=== PATIENT | male | born 1985 | race Caucasian/White ===

== ENCOUNTER 2017-11-04 15:41 | Emergency (ER) | payer OTHER ==
[~2017-11-04] VITALS: Ht 175.3 cm; Wt 95.2 kg
[~2017-11-04 15:41] MED LIST: BENTYL20 MG PO; CARAFATE1 GM PO; CELEXA20 MG PO; CLINDAMYCIN HC300 MG PO; DAYPRO600 MG PO; DULOXETINE HCL20 MG PO; GABAPENTIN100 MG PO; GABAPENTIN300 MG PO; IBUPROFEN800 MG PO; LORTAB 7.5-3251 EACH PO; NAPROXEN500 MG PO; NEURONTIN300 MG PO; NORCO 5-325 TA1 EACH PO; NORCO 7.5-3251 EACH PO; OMEPRAZOLE20 MG PO; PEPCID20 MG PO; PERCOCET 10-321 EACH PO; PERCOCET 5-3251 EACH PO; PREDNISONE20 MG PO; PRILOSEC20 MG PO; PROCHLORPERAZIN10 MG PO; PROTONIX40 MG PO; TRAMADOL HCL50 MG PO; WELLBUTRIN SR100 MG PO; XANAX1 MG PO; ZOFRAN ODT4 MG PO
== END 2017-11-04 16:10 | disposition home or self-care (01) ==
LOC: ED 15:41
DX: L08.9 Local infection of the skin and subcutaneous tissue, unspecified (principal)

== ENCOUNTER 2019-11-03 12:09 | Emergency (ER) | payer OTHER ==
[~2019-11-03] VITALS: Ht 175.3 cm; Wt 95.2 kg
--- OUTSIDE RECORDS SUMMARY | ~2019-11-03 | XMS | Clinical Summary ---
Demographics + + + | Address | [address] | | | [place] [address] | + + + | Home Phone | | + + + | Preferred Language | Unknown | + + + | Marital Status | | + + + | Latter-Day Affiliation | Unknown | + + + | Race | Unknown | + + + | Ethnic Group | Unknown | + + + Author + + + | Author | [facility] | | | and [place] | + + + | Organization | [facility] | | | and [place] | + + + | Address | Unknown | + + + | Phone | Unavailable | + + + Support + + +---------+ + | Name | Relationship | Address | Phone | + + +---------+ + | Maranda Multani | ECON | Unknown | | + + +---------+ + Care Team Providers + +------+ + | Care Business Support Manager Name | Role | Phone | + +------+ + | Pcp, Prov Inactive | PCP | | + +------+ + Allergies + + + + + + | Active Allergy | Reactions | Severity | Noted | Comments | | | | | Date | | + + + + + + | Vancomycin | Rash | Low | 09/28/19 | | | | | | 18 | | + + + + + + Medications No known medications Active Problems + + + | Problem | Noted Date | + + + | CELLULITIS AND ABSCESS OF UPPER ARM AND FOREARM | 07/27/2011 | + + + | BIPOLAR II DISORDER | 07/13/2011 | + + + | LOW BACK PAIN, CHRONIC | | + + + | KNEE PAIN | | + + + Immunizations + + + + | Name | Administration Dates | Next Due | + + + + | TDAP, (ADOL/ADULT) | 09/27/2017 | | + + + + Social History + +-------+ +--------+------+ | Tobacco Use | Types | Packs/Day | Years | Date | | | | | Used | | + +-------+ +--------+------+ | Current Every Day | | | | | | Smoker | | | | | + +-------+ +--------+------+ + +---+---+---+ | Smokeless Tobacco: | | | | | Never Used | | | | + +---+---+---+ + + + | Sex Assigned at | Date Recorded | | | | + + + | Not on file | | + + + Last Filed Vital Signs + + + + + | Vital Sign | Reading | Time Taken | Comments | + + + + + | Blood Pressure | 141/91 | 09/27/2017 11:14 AM | | | | | PDT | | + + + + + | Pulse | 81 | 09/27/2017 11:14 AM | | | | | PDT | | + + + + + | Temperature | 36.7 C (98 F) | 09/27/2017 11:14 AM | | | | | PDT | | + + + + + | Respiratory Rate | 18 | 09/27/2017 11:14 AM | | | | | PDT | | + + + + + | Oxygen Saturation | 96% | 09/27/2017 11:14 AM | | | | | PDT | | + + + + + | Inhaled Oxygen | - | - | | | Concentration | | | | + + + + + | Weight | 96 kg (211 lb 10.3 | 09/27/2017 11:14 AM | | | | oz) | PDT | | + + + + + | Height | 175.3 cm (5' 9") | 09/27/2017 11:14 AM | | | | | PDT | | + + + + + | Body Mass Index | 31.25 | 09/27/2017 11:14 AM | | | | | PDT | | + + + + + Plan of Treatment + + + + + | Health Maintenance | Due Date | Last | Comments | | | | Done | | + + + + + | Vaccine: Influenza | | | | | (#1) | 0 | | | + + + + + | Vaccine: | | 09/28/19 | | | Dtap/Tdap/Td (2 - | 8 | 18 | | | Td) | | | | + + + + + Results Not on filefrom Last 3 Months Additional Health Concerns + + + + + | Infection | Onset Date | Last Indicated | Resolved Time | + + + + + | Methicillin-resistan | 07/06/2013 | 07/06/2013 | | | t Staphylococcus | | | | | aureus | | | | + + + + + Insurance + +--------+ +--------+ +---------+--------+ | Payer | Benefi | Subscriber | Effect | Phone | Address | Type | | | t Plan | ID | elsy | | | | | | / | | Dates | | | | | | Group | | | | | | + +--------+ +--------+ +---------+--------+ | [employer] | [employer] | [id number] | | [phone] | | Medica | | MEDICAID HMO | HEALTH | | [id number] | 1 | | id | | | MDCD | | esent | | | | | | [place]MO [place] | | | | | | + +--------+ +--------+ +---------+--------+ + +--------+ +--------+ + + | Guarantor Name | Accoun | Relation to | Date | Phone | Billing Address | | | t Type | Patient | of | | | | | | | | | | + +--------+ +--------+ + + | Simeon Wynn | Person | Self [birth year] | [address] | | A | al/Fam | | 1986 | [phone] | [address] [place], | | | [place] | | | [address] (Home) | [place] [address] | + +--------+ +--------+ + + Advance Directives + + + + + | Type | Date Recorded | Patient | Explanation | | | | Health Information Director | | + + + + + | Power of | | | | | Hvac Refrigeration Technician | | | | + + + + + | Advance | | | | | Directive | | | | + + + + +
--- OUTSIDE RECORDS SUMMARY | ~2019-11-03 | XMS | Encounter Summary ---
Demographics + + + | Address | [address] | | | [place] [address] | + + + | Home Phone | | + + + | Preferred Language | Unknown | + + + | Marital Status | | + + + | Bahai Affiliation | Unknown | + + + | Race | Unknown | + + + | Ethnic Group | Unknown | + + + Author + + + | Author | [facility] | | | and [place] | + + + | Organization | [facility] | | | and [...] Team Providers + +------+ + | Care Laborer [employer]arch Factory Name | Role | Phone | + +------+ + | Pcp, Prov Inactive | PCP | | + +------+ + Encounter Details +--------+ + + + + | Date | Type | Department | Care Team | Description | +--------+ + + + + | 02/17/ | Orders Only | [facility] | Jonny Valadez | | | 2016 | | CONVERSION [address] | MD S[address] | | | | | [address] | [place] | | | | | [place] | [place] [address] | | | | | [address] | [phone] | | | | | [phone] | | | +--------+ + + + + Social History + +-------+ +--------+------+ | Tobacco Use | Types | Packs/Day | Years | Date | | | | | Used | | + +-------+ +--------+------+ | Never Assessed | | | | | + +-------+ +--------+------+ + + + | Sex Assigned at | Date Recorded | | | | + + + | Not on file | | + + + documented as of this encounter Plan of Treatment Not on filedocumented as of this encounter Procedures + +--------+ + + + | Procedure Name | Priori | Date/Time | Associated Diagnosis | Comments | | | ty | | | | + +--------+ + + + | ECHO INTERPRETATION | Routin | 02/18/2016 | | Results for this | | OF OUTSIDE FILMS | e | 12:45 PM | | procedure are in the | | | | PDT | | results section. | + +--------+ + + + documented in this encounter Results ECHO Interpretation of Outside Films (02/18/2016 12:45 PM PDT) + + | Specimen | + + | | + + + + + | Impressions | Performed At | + + + | 1. See Dictation. Sinus. 2. Cardiac chamber dimensions NML. LV | | | systolic and diastolic function NML, LVEF 60-65%. 3. Aortic, Mitral, | | | and Tricuspid valves NML, Pulmonic valve not seen well. No /AI. | | | Trace TR. 4. No Pericardial effusion, however, Pericardium | | | somewhat more reflectant, significant unknown. 5. IVC NML, est | | | systolic PAP 10-15mmHg. | | + + + + + + | Narrative | Performed At | + + + | Patient Name: Simeon Wynn Date of : 1985 | | | Performing Physician: Jh Gordon DO | | | | | | INDICATIONS bundle branch block CONCLUSIONS | | | 1. See Dictation. Sinus. 2. Cardiac chamber dimensions | | | NML. LV systolic and diastolic function NML, LVEF 60-65%. 3. Aortic, | | | Mitral, and Tricuspid valves NML, Pulmonic valve not seen well. No | | | /AI. Trace TR. 4. No Pericardial effusion, however, Pericardium | | | somewhat more reflectant, significant unknown. 5. IVC NML, est | | | systolic PAP 10-15mmHg. FINDINGS -------- ECG rhythm: Sinus | | | rhythm. Study: This was a technically adequate study. Left | | | Ventricle: Overall left ventricular systolic function is normal with, | | | an EF between 60 - 65 %. Left Ventricle: The left ventricle cavity | | | size is normal. Left Ventricle: Left ventricular wall thickness is | | | normal. Left Ventricle: The diastolic filling pattern is normal for | | | the age of the patient. Right Ventricle: The right ventricle is | | | normal in size. Right Ventricle: The right ventricular systolic | | | function is normal. Left Atrium: The left atrium is normal in size. | | | Right Atrium: The right atrium is normal in size. Aortic Valve: The | | | aortic valve is trileaflet, and appears anatomically normal. No aortic | | | stenosis or regurgitation. Mitral Valve: The mitral valve is normal. | | | Mitral Valve: No mitral regurgitation. Tricuspid Valve: The | | | tricuspid valve appears structurally normal. Tricuspid Valve: Trace | | | tricuspid regurgitation present. Pulmonic Valve: The pulmonic valve | | | was not well visualized. Pericardium: There is no pericardial | | | effusion. IVC/Hepatic Veins: The IVC is small (<1.5cm) and collapses | | | with sniff, consistent with central venous pressures of 0-5mmHg. | | | MEASUREMENTS Funeral Driver: MARTHA Authenticated by: | | | Jh Gordon DO Report Date/Time: -- 07_[id number]:42:32 | | + + + + + | Procedure Note | + + | Sean, Rad Conversion - 12/21/2018 10:34 PM PDT Patient Name: Tianna, | | VasiliosDate of : 1985 Performing Physician: Jh | | Heidi | | DO INDICATIONS b | | undle branch block CONCLUSIONS 1. See Dictation. Sinus. 2. Cardiac chamber | | dimensions NML. LV systolic and diastolic function NML, LVEF 60-65%. 3. Aortic, Mitral, | | and Tricuspid valves NML, Pulmonic valve not seen well. No /AI. Trace TR. 4. No | | Pericardial effusion, however, Pericardium somewhat more reflectant, significant | | unknown. 5. IVC NML, est systolic PAP 10-15mmHg. FINDINGS--------ECG rhythm: Sinus | | rhythm.Study: This was a technically adequate study.Left Ventricle: Overall left | | ventricular systolic function is normal with, an EF between 60 - 65 %.Left Ventricle: | | The left ventricle cavity size is normal.Left Ventricle: Left ventricular wall thickness | | is normal.Left Ventricle: The diastolic filling pattern is normal for the age of the | | patient.Right Ventricle: The right ventricle is normal in size.Right Ventricle: The | | right ventricular systolic function is normal.Left Atrium: The left atrium is normal in | | size.Right Atrium: The right atrium is normal in size.Aortic Valve: The aortic valve is | | trileaflet, and appears anatomically normal. No aortic stenosis or regurgitation.Mitral | | Valve: The mitral valve is normal.Mitral Valve: No mitral regurgitation.Tricuspid Valve: | | The tricuspid valve appears structurally normal.Tricuspid Valve: Trace tricuspid | | regurgitation present.Pulmonic Valve: The pulmonic valve was not well | | visualized.Pericardium: There is no pericardial effusion.IVC/Hepatic Veins: The IVC is | | small (<1.5cm) and collapses with sniff, consistent with central venous pressures of | | 0-5mmHg. MEASUREMENTS Funeral Driver: DBSAuthenticated by: Jh Gordon | | D[place]ep[place] Date/Time: -- [id number] IMPRESSION: 1. See Dictation. Sinus. 2. | | Cardiac chamber dimensions NML. LV systolic and diastolic function NML, LVEF 60-65%. 3. | | Aortic, Mitral, and Tricuspid valves NML, Pulmonic valve not seen well. No /AI. | | Trace TR. 4. No Pericardial effusion, however, Pericardium somewhat more reflectant, | | significant unknown. 5. IVC NML, est systolic PAP 10-15mmHg. | |Right Atrium: The right atrium is normal in size. | |Aortic Valve: The aortic valve is trileaflet, and appears anatomically normal. No aortic st enosis or regurgitation. | |Mitral Valve: The mitral valve is normal. | |Mitral Valve: No mitral regurgitation. | |Tricuspid Valve: The tricuspid valve appears structurally normal. | |Tricuspid Valve: Trace tricuspid regurgitation present. | |Pulmonic Valve: The pulmonic valve was not well visualized. | |Pericardium: There is no pericardial effusion. | |IVC/Hepatic Veins: The IVC is small (<1.5cm) and collapses with sniff, consistent with cent ral venous pressures of 0-5mmHg. | | | |MEASUREMENTS | | | | | |Funeral Driver: DBS | |Authenticated by: Jh Gordon DO | |Report Date/Time: -- [id number]:32 | | | |IMPRESSION: | |1. See Dictation. Sinus. 2. Cardiac chamber dimensions NML. LV systolic and diastolic fun ction NML, LVEF 60-65%. 3. Aortic, Mitral, and Tricuspid valves NML, Pulmonic valve not seen well. No /AI. Trace TR. 4. No Pericardial effusion, however, | |Pericardium somewhat more reflectant, significant unknown. 5. IVC NML, est systolic PAP 10- 15mmHg. | + + documented in this encounter Visit Diagnoses Not on filedocumented in this encounter Additional Health Concerns + + + + + | Infection | Onset Date | Last Indicated | Resolved Time | + + + + + | Methicillin-resistan | 07/06/2013 | 07/06/2013 | | | t Staphylococcus | | | | | aureus | | | | + + + + + documented as of this encounter"
--- OUTSIDE RECORDS SUMMARY | ~2019-11-03 | XMS | Encounter Summary ---
Demographics + + + | Address | [address] | | | [place] [address] | + + + | Home Phone | | + + + | Preferred Language | Unknown | + + + | Marital Status | | + + + | Anabaptist Affiliation | Unknown | + + + | Race | Unknown | + + + | Ethnic Group | Unknown | + + + Author + + + | Author | [facility] | | | and [place] | + + + | Organization | [facility] | | | and [...] Team Providers + +------+ + | Care Education Administrative Assistant Name | Role | Phone | + +------+ + | Omkar Ramey MD | PCP | | + +------+ + Encounter Details +--------+ + + + + | Date | Type | Department | Care Team | Description | +--------+ + + + + | [facility] | Pascual Rebolledo | | | 2011 | Encounter | MED [facility] OP | MD Miranda, FACS [address] | | | | | [address] | [address] | | | | | [place] | [place] [address] | | | | | [address] | [phone] | | | | | [phone] | | | +--------+ + + + [...] + + documented as of this encounter Medications at Time of Discharge + + + +---------+ + + | Medication | Sig | Dispensed | Refills | Start | End Date | | | | | | Date | | + + + +---------+ + + | citalopram | Take 20 mg by mouth | | 0 | 07/13/19 | | | (CELEXA) 20 mg | Daily. | | | 12 | 8 | | tablet | | | | | | + + + +---------+ + + | divalproex | Take 250 mg by mouth | | 0 | 07/13/19 | | | (DEPAKOTE) 250 mg EC | 2 times daily. | | | 12 | 8 | | tablet | | | | | | + + + +---------+ + + | | Take 7.5-325 mg by | | 0 | 07/13/19 | | | HYDROcodone-acetamin | mouth every 4 hours | | | 12 | 8 | | ophen (NORCO) | as needed. | | | | | | 7.5-325 mg per | | | | | | | tablet | | | | | | + + + +---------+ + + | traMADol (ULTRAM) | one or two twice | | 0 | 07/27/19 | | | 50 mg tablet | daily | | | 12 | 8 | + + + +---------+ + + documented as of this encounter Miscellaneous Notes Op Note - Pascual Rebolledo MD - 07/27/2011 11:48 AM PDTDATE: 07/27/2011 PREOPERATIVE DIAGNOSIS: Right arm abscess and cellulitis. POSTOPERATIVE DIAGNOSIS: RIGHT ARM ABSCESS AND CELLULITIS. PROCEDURE: Incision and drainage x2 right forearm. OPERATING SURGEON: Pascual Rebolledo MD. DURATION OF SURGERY: 20 minutes. INDICATIONS FOR PROCEDURE: This 26-year-old gentleman has had approximately 5-7 days of inc reasing ce llulitis of the right forearm. CT demonstrated area abscess. Ultrasound in [facility] confirmed this f inding. FINDINGS AT SURGERY: Two areas of abscess, one in the anterolateral proximal forearm approx imately 2 cm, one in the far lateral dorsum of the arm approximately 6 x 8 cm. Both of thes e were cultured sepa rately, appeared to be whitish yellow creamy pus. OPERATIVE PROCEDURE: This patient had been examined in the office the morning of surgery. U ltrasound had been done confirming areas of fluid collection. He was then taken to the oper ating room. Dr. Ernie chatterjee proceeded with a general laryngeal mask anesthesia. The right arm wa s prepped with ChloraPrep and d raped in a sterile manner. Pause was made to identify the p atient and procedure, perioperative medica tions and allergies. The patient had an approxim ately 2 cm pustule on the anterolateral proximal fore arm. This was incised. There was pus present. The area of necrotic subcutaneous fat was excised leavi ng a saucerized 2 cm wound . Subcutaneous bleeders were cauterized. The patient's fluctuant area on th e far lateral p roximal forearm was then incised over the area of maximal fluctuance. Pus came out of this. This was also cultured. Digital exploration of the abscess cavity was done and it was exten ded approximately 1 cm proximally and distally opening up the area of abscess completely. T here were no o ther areas of fluctuance. The arm was squeezed. No other pus was draining. Good hemostasis was obta ined in the larger incision and drainage. Local anesthesia 30 mL, 0.25% Marcaine with epinephrine was used to infiltrate around the area of incision. The la rger incision and drainage was packed open wit h Kerlix roll followed by an ABD and a secon d Kerlix roll. The patient was awoken, extubated, and david en to recovery in stable conditio n. ESTIMATED BLOOD LOSS: 18 mL. BLOOD REPLACED: None. SPECIMENS REMOVED: Cultures. DICTATED BY: Pascual Rebolledo MD Surgery JOB #: [id number] EXT JOB #:[id number] <Electronicall y Signed by Pascual Rebolledo MD> 07/27/11 1732 documented in this encounter Plan of Treatment Not on filedocumented as of this encounter Visit Diagnoses Not on filedocumented in this encounter"
--- OUTSIDE RECORDS SUMMARY | ~2019-11-03 | XMS | Encounter Summary ---
Demographics + + + | Address | [address] | | | [place] [address] | + + + | Home Phone | | + + + | Preferred Language | Unknown | + + + | Marital Status | | + + + | Scientology Affiliation | Unknown | + + + | Race | Unknown | + + + | Ethnic Group | Unknown | + + + Author + + + | Author | [facility] | | | and [place] | + + + | Organization | [facility] | | | and [...] Team Providers + +------+ + | Care Criminal Research Specialist Name | Role | Phone | + +------+ + PCP | Unavailable | + +------+ + Encounter Details +--------+ + + + + | Date | Type | Department | Care Team | Description | +--------+ + + + + | 07/09/ | [facility] | [facility] | Eunice Fermin MD | | | 2008 | Encounter | MED CTR XRAY [address] | [address] | | | | | [place] | [place] [address] | | | | | [place] [address] | [phone] | | | | | [phone] | | | +--------+ + + + [...]
--- OUTSIDE RECORDS SUMMARY | ~2019-11-03 | XMS | Encounter Summary ---
Demographics + + + | Address | [address] | | | [place] [address] | + + + | Home Phone | | + + + | Preferred Language | Unknown | + + + | Marital Status | | + + + | Confucianist Affiliation | Unknown | + + + | Race | Unknown | + + + | Ethnic Group | Unknown | + + + Author + + + | Author | [facility] | | | and [place] | + + + | Organization | [facility] | | | and [...] Team Providers + +------+ + | Care Television Equipment Operator Name | Role | Phone | + +------+ + | Pcp, Prov Inactive | PCP | | + +------+ + Reason for Visit + + + | Reason | Comments | + + + | Finger Laceration | PRO RM A- right finger LAC X today, last tetanus unknown | + + + Encounter Details +--------+---------+ + + + | Date | Type | Department | Care Team | Description | +--------+---------+ + + + | 09/27/ | Office | [facility] | Guero German, | Laceration of right | | 2018 | Visit | CARE [address] | MD [address] | index finger without | | | | [place] | foreign body | | | | [id number] | [id number] | without damage to | | | | [phone] | | camryn, initial | | | | | | encounter (Primary | | | | | | Dx) | +--------+---------+ + + + Social History + +-------+ [...] + + documented as of this encounter Last Filed Vital Signs + + + [...] | + + + + + documented in this encounter Patient Instructions Patient Instructions Guero German MD - 09/27/2017 11:00 AM PDT Diphtheria/Tetanus Toxoids; Pertussis Vaccine, DTP injection Brand Names: Adacel, Boostrix, Daptacel, Infanrix What is this medicine? DIPHTHERIA and TETANUS TOXOIDS; PERTUSSIS VACCINE (dif THEER ee uh and TET n us TOK soids; per TUS iss VAK seen) is used to prevent diphtheria, tetanus, and pertussis infections. How should I use this medicine? This vaccine is for injection into a muscle. It is given by a health care asst. A copy of Vaccine Information Statements will be given before each vaccination. Read this s heet carefully each time. The sheet may change frequently. Talk to your internal salesperson regarding the use of this vaccine in children. While the DTP vacc ine may be given to children ages 6 weeks to 7 years and the Tdap vaccine may be given to ch ildren at least 10 years old, precautions do apply. What side effects may I notice from receiving this medicine? Side effects that you should report to your doctor or health care asst as soon as p ossible: allergic reactions like skin rash, itching or hives, swelling of the face, lips, or tong ue breathing problems fever of 103 degrees F or more flu-like symptoms inconsolable crying infection pain, tingling, numbness in the hands or feet seizures swelling of arm or leg that was injected unusually weak or tired Side effects that usually do not require medical attention (report to your doctor or health care asst if they continue or are bothersome): fussy, irritable loss of appetite low-grade fever pain, tenderness, redness, swelling, or a 'knot' at site where injected vomiting What may interact with this medicine? immune globulin medicines that suppress your immune function like adalimumab, anakinra, infliximab medicines to treat cancer medicines that treat or prevent blood clots like warfarin, enoxaparin, and dalteparin steroid medicines like prednisone or cortisone What if I miss a dose? It is important not to miss your dose. Call your doctor or health care asst if you are unable to keep an appointment. Where should I keep my medicine? This drug is given in a hospital or clinic and will not be stored at home. What should I tell my health care provider before I take this medicine? They need to know if you have any of these conditions: blood disorders like hemophilia fever or infection immune system problems neurologic disease seizures an unusual or allergic reaction to vaccines, thimerosal, latex, other medicines, foods, dyes, or preservatives or trying to get breast-feeding What should I watch for while using this medicine? See your health care provider for all shots of this vaccine as directed. To have protection from infection, you must have 3 shots of this vaccine plus boosters as needed. Tell your do ctor right away if you have any serious or unusual side effects after getting this vaccine. NOTE:This sheet is a summary. It may not cover all possible information. If you have questi ons about this medicine, talk to your doctor, pharmacist, or health care provider. Copyright 2017 [employer] documented in this encounter Progress Notes Connie Lentz, As400 Analyst - 09/27/2017 11:00 AM PDTTDaP vaccine administered pe r Dr. German's order. Patient tolerated well. See immunizations for more details. et Guero camp MD - 09/27/2017 11:00 AM PDTFormatting of this note might be different from t he original. Subjective: Patient ID: Simeon Wynn is a 32 y.o. male. Chief Complaint Patient presents with Finger Laceration PRO RM A- right finger LAC X today, last tetanus unknown HPI The patient is a 32-year-old male is being seen for a right finger laceration. Sustained o n working on his own car home when he pinched his hand between a wrench and sharp edge on bl ock of motor. His Friend just within the last one hour. Was a moderate amount of bleeding but no squirting blood. He is able to move the finger but feels a little stiff. He denies any numbness of the finger. He is unsure when his last tetanus immunization was. He has ortiz d his initial tetanus series however. Past medical history is otherwise negative. No past medical history on file. No past surgical history on file. No current outpatient prescriptions on file. No current facility-administered medications for this visit. Allergies Allergen Reactions Vancomycin Rash Intolerance No active intolerances/contraindications ROS No further pertinent positives with problem oriented review. See above. Objective: BP (!) 141/91 | Pulse 81 | Temp 36.7 C (98 F) (Temporal) | Resp 18 | Ht 1.753 m (5' 9") | Wt 96 kg (211 lb 10.3 oz) | SpO2 96% | BMI 31.25 kg/m Physical Exam The right hand is with a 3 cm laceration on the radial side of the index finger proximal ph alanx. The wound extends into the subcutaneous tissue but does not involve the tendons or d eeper structures. Distal sensation is intact on the finger Refill is less than 2 seconds an d he has normal flexion and extension function of the finger. Procedure: After obtaining verbal consent from the patient the wound was cleaned with surgi liset scrub and then anesthesia was with local injection of 1% lidocaine without epinephrine 3 cc. The wound was then further irrigated with 20 cc of saline via syringe and explored and no deeper structure injury was found. The wound was closed with 4-0 nylon times 3 interrup queta. The bleeding was controlled and wound was dressed with antibiotic ointment and Band- d. The patient is certainly keep the wound dry for 2 days now than not to soak until the sutur es are removed in 10 days. Assessment/Plan: Simeon was seen today for finger laceration. Diagnoses and all orders for this visit: Laceration of right index finger without foreign body without damage to nail, initial encou nter Other orders - Tdap vaccine greater than or equal to 7yo IM [[id number]] No Follow-up on file. Tdocumented in this encounter Plan of Treatment Not on filedocumented as of this encounter Visit Diagnoses + + | Diagnosis | + + | Laceration of right index finger without foreign body without damage to nail, initial | | encounter - Primary | + + documented in this encounter Additional Health Concerns + [...]
--- OUTSIDE RECORDS SUMMARY | ~2019-11-03 | XMS | Encounter Summary ---
Demographics + + + | Address | [address] | | | [place] [address] | + + + | Home Phone | | + + + | Preferred Language | Unknown | + + + | Marital Status | | + + + | Jewish Affiliation | Unknown | + + + | Race | Unknown | + + + | Ethnic Group | Unknown | + + + Author + + + | Author | [facility] | | | and [place] | + + + | Organization | [facility] | | | [...] Team Providers + +------+ + | Care Front Desk Manager Name | Role | Phone | + +------+ + | Omkar Ramey MD | PCP | | + +------+ + Encounter Details +--------+ + + + + | Date | Type | Department | Care Team | Description | +--------+ + + + + | 01/12/ | Abstract | [facility] | [facility] | | | 2011 | | Conversion Location | SR | | | | | [address] | | | | | | [place], [place] | | | | | | [address] | | | | | | [phone] | | | +--------+ + + + [...] + + + | Blood Pressure | 120/80 | 11/15/2011 12:00 AM | | | | | PDT | | + + + + + | Pulse | - | - | | + + + + + | Temperature | - | - | | + + + + + | Respiratory Rate | - | - | | + + + + + | Oxygen Saturation | - | - | | + + + + + | Inhaled Oxygen | - | - | | | Concentration | | | | + + + + + | Weight | 82.1 kg (181 lb) | 11/15/2011 12:00 AM | | | | | PDT | | + + + + + | Height | 175.3 cm (5' 9") | 07/13/2011 12:00 AM | | | | | PDT | | + + + + + | Body Mass Index | 26.73 | 07/13/2011 12:00 AM | | | | | PDT | | + + + + + documented in this encounter Plan of Treatment Not on filedocumented as of this encounter Visit Diagnoses Not on filedocumented in this encounter
--- OUTSIDE RECORDS SUMMARY | ~2019-11-03 | XMS | Encounter Summary ---
Demographics + + + | Address | [address] | | | [place] [address] | + + + | Home Phone | | + + + | Preferred Language | Unknown | + + + | Marital Status | | + + + | Taoist Affiliation | Unknown | + + + | Race | Unknown | + + + | Ethnic Group | Unknown | + + + Author + + + | Author | [facility] | | | and [place] | + + + | Organization | [facility] | | | and [...] Team Providers + +------+ + | Care Operations Specialist Name | Role | Phone | + +------+ + PCP | Unavailable | + +------+ + Encounter Details +--------+ + + + + | Date | Type | Department | Care Team | Description | +--------+ + + + + | 10/01/ | Hospital | [facility] | Shubham Rebollar | | | 2009 | Encounter | MED CTR XRAY [address] | | | | | [place] | [address] [place] | | | | | [place] [id number] | [id number] | | | | | [phone] | | | +--------+ + + + [...]
[2019-11-03] MEDS ORDERED: CLEOCIN HCL300 MG PO (15:31)
[2019-11-03] MEDS ORDERED: NORCO 5-325 TA1 EACH PO (15:31)
== END 2019-11-03 16:33 | disposition home or self-care (01) ==
LOC: ED 12:09
PROC: 0H9BXZZ Drainage of Right Upper Arm Skin, External Approach (ICD-10-PCS; principal; 2019-11-03)
DX: L02.413 Cutaneous abscess of right upper limb (principal); L03.113 Cellulitis of right upper limb; F17.200 Nicotine dependence, unspecified, uncomplicated; Z88.1 Allergy status to other antibiotic agents
CPT/HCPCS: 10060; 73201; 80053; 83605; 85025; 87070; 87077; 87186; 87205; 99284-25; J1885; J2060; J2270; J2405; J7030

== ENCOUNTER 2021-02-06 16:31 | Emergency (ER) | payer OTHER ==
[~2021-02-06] VITALS: Ht 175.3 cm; Wt 87.9 kg
[~2021-02-06 16:31] MED LIST changes: +CLEOCIN HCL300 MG PO
[2021-02-06] MEDS ORDERED: DOXYCYCLINE HY100 MG PO (19:12)
[2021-02-06] MEDS ORDERED: HYDROCODON-ACE1 EA11 PO (19:12)
== END 2021-02-06 19:27 | disposition home or self-care (01) ==
LOC: ED 16:31
DX: N45.1 Epididymitis (principal); N44.2 Benign cyst of testis; K21.9 Gastro-esophageal reflux disease without esophagitis; F17.200 Nicotine dependence, unspecified, uncomplicated; Z88.1 Allergy status to other antibiotic agents
CPT/HCPCS: 76870; 99284-25; A9270

== ENCOUNTER 2021-05-25 00:43 | Emergency (ER) | payer OTHER ==
[~2021-05-25] VITALS: Ht 175.3 cm; Wt 86.2 kg
[~2021-05-25 00:43] MED LIST changes: +DOXYCYCLINE HY100 MG PO; +HYDROCODON-ACE1 EA11 PO
== END 2021-05-25 02:38 | disposition home or self-care (01) ==
LOC: ED 00:43
DX: B34.9 Viral infection, unspecified (principal); K21.9 Gastro-esophageal reflux disease without esophagitis; F17.200 Nicotine dependence, unspecified, uncomplicated; Z88.1 Allergy status to other antibiotic agents
CPT/HCPCS: 81001; 85025; 99283; A9270; U0003

== ENCOUNTER 2021-12-14 23:01 | Emergency (ER) | payer OTHER ==
[~2021-12-14] VITALS: Ht 175.3 cm; Wt 84.1 kg
== END 2021-12-15 00:25 | disposition home or self-care (01) ==
LOC: ED 23:01
DX: S50.12XA Contusion of left forearm, initial encounter (principal); K21.9 Gastro-esophageal reflux disease without esophagitis; F17.200 Nicotine dependence, unspecified, uncomplicated; Z88.1 Allergy status to other antibiotic agents; Y08.09XA Assault by strike by other specified type of sport equipment, initial encounter
CPT/HCPCS: 73030; 73060; 73090; 73110; 73130

== ENCOUNTER 2022-01-25 12:11 | Emergency (ER) | payer OTHER ==
[~2022-01-25] VITALS: Ht 175.3 cm; Wt 88.5 kg
[2022-01-25] MEDS ORDERED: PENICILLIN V P500 MG PO (12:36)
[2022-01-25] MEDS ORDERED: HYDROCODON-ACE1 EA10 PO (12:36)
== END 2022-01-25 13:00 | disposition home or self-care (01) ==
LOC: ED 12:11
DX: K04.7 Periapical abscess without sinus (principal); K21.9 Gastro-esophageal reflux disease without esophagitis; F17.200 Nicotine dependence, unspecified, uncomplicated; Z88.1 Allergy status to other antibiotic agents
CPT/HCPCS: 96372; 99282; J1885

== ENCOUNTER 2022-07-12 09:49 | Emergency (ER) | payer OTHER ==
[~2022-07-12] VITALS: Ht 175.3 cm; Wt 90.9 kg
[~2022-07-12 09:49] MED LIST changes: +HYDROCODON-ACE1 EA10 PO; +PENICILLIN V P500 MG PO
--- NOTE | 2022-07-12 14:58 | EKG ---
[facility] [address] [place], [place] [address] Signed Sinus tachycardia Otherwise normal ECG No previous ECGs available Confirmed by FRITZ MONTANA MD ([id number]) on 07/12/2022 2:58:03 PM Electronically Signed By: FRITZ MONTANA MD 07/12/22 1458 PATIENT NAME: LEORAMAXIMINOJAVY Electrocardiogram DATE OF : 89 PHYSICIAN: FRITZ MONTANA MD REPORT #: [id number] REPORT IS CONFIDENTIAL AND NOT TO BE RELEASED WITHOUT AUTHORIZATION
== END 2022-07-12 14:36 | disposition home or self-care (01) ==
LOC: ED 09:49
DX: F15.10 Other stimulant abuse, uncomplicated (principal); K21.9 Gastro-esophageal reflux disease without esophagitis; F17.200 Nicotine dependence, unspecified, uncomplicated; Z88.1 Allergy status to other antibiotic agents
CPT/HCPCS: 36415; 80053; 81003; 84484; 85025; 93005; 93010; 99285-25; J7030